=== PATIENT | male | born 1995 | race Caucasian/White ===

== ENCOUNTER 2019-12-07 00:22 | Emergency (ER) | payer SELFPAY ==
[~2019-12-07] VITALS: Ht 188 cm; Wt 99.8 kg
--- NOTE | 2019-12-07 00:24 | NUR ---
PT BIBA ALS TO ER BED 10
--- NOTE | 2019-12-07 00:25 | NUR ---
PT ALERT AND AWAKE. PT PLACED IN HOSPITAL GOWN AND ATTACHED TO MONITOR SYSTEM. BEDRAIL X2 UP. BED IN LOWEST POSTION. WILL CONTINUE TO MONITOR.
[2019-12-07 00:26] VITALS: BP 142/88
--- NOTE | 2019-12-07 00:28 | NUR ---
PT STATED HE WANTS TO LEAVE HOSPITAL. DR. TURCIOS NOTIFIED AND AT PT BEDSIDE.
--- NOTE | 2019-12-07 00:30 | NUR ---
[employer] PD AT BEDSIDE.
--- NOTE | 2019-12-07 01:00 | NUR ---
S/W PT AND SHOWING REMORSE S/P DRUG INGESTION. PT REPORTS INCREASED STRESSED. COUNSELED PATIENT ON DRUG INGESTION AND POSSIBLE EFFECTS. WILL CONTINUE TO MONITOR.
--- NOTE | 2019-12-07 01:47 | NUR ---
AMBULATORY TO RESTROOM WITHOUT ASSITANCE. OKAY TO D/C PER DR TURCIOS.
--- NOTE | 2019-12-07 01:52 | NUR ---
Patient discharged with v/s stable. Written and verbal after care instructions given and explained. Patient verbalized understanding. Ambulatory with steady gait. All questions addressed prior to discharge. Advised to follow up with PMD.
[2019-12-07 01:53] VITALS: BP 122/75
== END 2019-12-07 01:52 | disposition home or self-care (01) ==
LOC: MED 00:22
DX: T40.4X1A Poisoning by other synthetic narcotics, accidental (unintentional), initial encounter (principal); F11.90 Opioid use, unspecified, uncomplicated; Y92.89 Other specified places as the place of occurrence of the external cause
CPT/HCPCS: 99283